=== PATIENT | female | born 1980 ===

== ENCOUNTER 2018-09-03 10:51 | Outpatient (CLI) | payer OTHER ==
[~2018-09-03] VITALS: Ht 160 cm; Wt 79.4 kg
[2018-09-03] MEDS ORDERED: CLARITIN10 MG PO (12:22)
[2018-09-03] MEDS ORDERED: FLONASE16 GM NASAL (12:22)
== END 2018-09-03 11:10 | disposition home or self-care (01) ==
LOC: OFIC 805 10:51
DX: R22.1 Localized swelling, mass and lump, neck (principal); J31.0 Chronic rhinitis; J34.2 Deviated nasal septum; J34.3 Hypertrophy of nasal turbinates; H69.83 Other specified disorders of Eustachian tube, bilateral; H93.11 Tinnitus, right ear